=== PATIENT | female | born 1950 | race Caucasian/White ===

== ENCOUNTER 2024-12-02 10:36 | Emergency (ER) | payer MEDICARE, OTHER ==
[2024-12-02] MEDS: Nitroglycerin 0.4 MG Tab.SL SL PRN (12:20)
[2024-12-02 12:23] LABS: BASOPHILS PERCENT AUTO 0.3 % (0.1-1.3); EOSINOPHILS ABSOLUTE AUTO 0.11 K/uL (0.00-0.40); EOSINOPHILS PERCENT AUTO 1.7 % (0.0-5.4); IMMATURE GRAN PERCENT AUTO 0.3 % (0.0-0.7); LYMPHOCYTES ABSOLUTE AUTO 1.37 K/uL (0.8-3.3); LYMPHOCYTES PERCENT AUTO 20.8 % (11.4-47.7); MONOCYTES ABSOLUTE AUTO 0.43 K/uL (0.20-0.90); MONOCYTES PERCENT AUTO 6.5 % (3.3-12.6); NEUTROPHILS ABSOLUTE AUTO 4.65 K/uL (1.0-7.6); NEUTROPHILS PERCENT AUTO 70.4 % (40.0-78.1); PLATELET COUNT,PLT 138 K/uL (130-375); RED BLOOD CELL COUNT 4.24 M/uL (3.77-5.24); WHITE BLOOD CELL COUNT,WBC 6.6 K/uL (3.2-11.0)
[2024-12-02 12:27] LABS: BASE EXCESS VENOUS 3.4 mm/L; BICARBONATE,VENOUS 28.6 mmol/L; O2 SATURATION VENOUS 41.4; OXYHEMOGLOBIN 40.5 %; PCO2 VENOUS 47.6 mm/Hg; PH,VENOUS 7.396 (7.350-7.450); TOTAL HEMOGLOBIN 14.2 g/dL (12.0-16.0)
[2024-12-02 12:33] LABS: PO2 VENOUS 23.6 mm/Hg
[2024-12-02 12:37] LABS: BASOPHILS ABSOLUTE AUTO 0.02 K/uL (0.00-0.10); IMMATURE GRAN ABSOLUTE AUTO 0.02 K/uL (0.00-0.23)
[2024-12-02 12:58] LABS: A/G RATIO 1.3 (1.2-2.2); ALANINE AMINOTRANSFERASE,ALT 20 U/L (12-78); ASPARTATE AMNIOTRANSFERASE,AST 18 U/L (15-37); BILIRUBIN TOTAL 0.5 mg/dL (0.2-1.0); BLOOD UREA NITROGEN,BUN 23 mg/dL (7-18); CARBON DIOXIDE,CO2 29 mmol/L (21-32); CHLORIDE,CL 104 mmol/L (100-108); CREATININE 0.8 mg/dL (0.6-1.0); EST CRCL DRUG DOSING (CG) 57.20 mL/min; ESTIMATED GFR 78 mL/min (>60); GLUCOSE RANDOM 91 mg/dL (74-106); POTASSIUM,K 4.0 mmol/L (3.6-5.2); PRO B-TYPE NATRIUR PEPT,BNPPRO 227 pg/mL (5-125); PROTEIN TOTAL,TP 6.8 g/dL (6.4-8.2); SODIUM,NA 143 mmol/L (140-148); TROPONIN I HIGH SENSITIVITY 5.1 pg/mL (<=60.3)
[2024-12-02] MEDS: Iopamidol 755 Mg/ML 100 ML Bottle IV ONE (14:17)
[2024-12-02] MEDS: Sodium Chloride 0.9% 10 ML Syringe FLUSH ONE (14:17)
[2024-12-07 15:20] LABS: ANAPLASMA PHAGOCYTOPHILUM PCR Not Detected; BABESIA MICROTI BY PCR Not Detected; EHRLICHIA CHAFFEENSIS BY PCR Not Detected; EHRLICHIA EWINGII/CANIS BY PCR Not Detected; EHRLICHIA MURIS-LIKE BY PCR Not Detected
== END 2024-12-02 15:40 | disposition home or self-care (01) ==
LOC: JP.ED 10:36
DX: R07.89 Other chest pain (principal); N28.89 Other specified disorders of kidney and ureter; Z79.82 Long term (current) use of aspirin; Z79.899 Other long term (current) drug therapy; Z86.16 Personal history of COVID-19
CPT/HCPCS: 36415; 71045; 71275; 80053; 82803; 83605; 83735; 83880; 84484; 85025; 85379; 85651; 86618; 87426; 87468; 87469; 87484; 87798; 93005; 93010; 99284; 99285; A9270; J7030; Q9967